=== PATIENT | female | born 1960 | race Caucasian/White ===

== ENCOUNTER 2017-06-21 07:41 | Emergency (ER) | payer MEDICAID, OTHER ==
[~2017-06-21] VITALS: Ht 154.9 cm; Wt 47.3 kg
[~2017-06-21 07:41] MED LIST: ATRIN IH; CYCL-1 PO; DIAZ5TAB PO; HYDR-569 PO; PRED20TA PO; PROC-8 PO
[2017-06-21 07:55] VITALS: BP 113/76
[2017-06-21 10:17] LABS: BASOPHILS # (AUTO) 0.2 X10'3 (0-0.2); BASOPHILS % (AUTO) 2.8 % (0-1); EOSINOPHILS # (AUTO) 0.2 X10'3 (0-0.9); EOSINOPHILS % (AUTO) 2.4 % (0-6); HEMOGLOBIN 14.4 g/dl (12.0-16.0); LYMPHOCYTES # (AUTO) 1.7 X10'3 (1.1-4.8); LYMPHOCYTES % (AUTO) 24.5 % (21-51); MEAN CORPUSCULAR HEMOGLOBIN 32.5 PG (27.0-31.0); MEAN CORPUSCULAR HGB CONC 34.3 % (33.0-36.5); MEAN CORPUSCULAR VOLUME 94.5 FL (78-98); MEAN PLATELET VOLUME 8.1 FL (7.4-10.4); MONOCYTES # (AUTO) 0.7 X10'3 (0-0.9); MONOCYTES % (AUTO) 10.1 % (2-12); NEUTROPHILS % (AUTO) 60.2 % (42-75); PLATELET COUNT 347 X10'3 (140-440); RED BLOOD COUNT 4.44 X10'6 (4.20-5.60); RED CELL DISTRIBUTION WIDTH 12.1 % (11.5-14.5); WHITE BLOOD COUNT 6.8 X10'3 (4.5-11.0)
[2017-06-21 10:27] LABS: PARTIAL THROMBOPLASTIN TIME 27 SECONDS (22-32)
[2017-06-21 10:41] LABS: ALANINE AMINOTRANSFERASE 35 U/L (12-78); ALBUMIN 3.9 G/DL (3.4-5.0); ALBUMIN/GLOBULIN RATIO 0.9 (1.1-1.5); ALKALINE PHOSPHATASE 78 IU/L (46-116); ANION GAP 7 (8-16); ASPARTATE AMINO TRANSFERASE 19 U/L (10-37); BILIRUBIN,TOTAL 0.4 MG/DL (0.1-1.0); BLOOD UREA NITROGEN 11 MG/DL (7-18); BUN/CREATININE RATIO 18.3 (6.6-38.0); CALCIUM 9.2 MG/DL (8.5-10.1); CHLORIDE 104 MMOL/L (99-107); GLUCOSE 93 MG/DL (70-104); LIPASE 176 U/L (73-393); MAGNESIUM 2.1 MG/DL (1.5-2.4); POTASSIUM 4.1 MMOL/L (3.5-5.1); SODIUM 143 MMOL/L (135-145); TOTAL CARBON DIOXIDE 32.3 MMOL/L (24-32); TOTAL PROTEIN 8.1 G/DL (6.4-8.2); eGFR > 90 ML/MIN
[2017-06-21 11:02] LABS: CLARITY,URINE Clear (Clear); COLOR,URINE Yellow (Yellow); GLUCOSE, URINE Negative (Neg); KETONES,URINE Trace mg/dl (Neg); LEUKOCYTE ESTERASE ,URINE Small (Neg); NITRITES, URINE Negative (Neg); OCCULT BLOOD,URINE Negative (Neg); PH,URINE 6.5 (4.8-8.0); PROTEIN,URINE Negative (Neg)
[2017-06-21 11:04] LABS: UA COLLECTION TYPE CLN CATCH MIDSTREAM
[2017-06-21 11:12] LABS: BACTERIA,URINE FEW /HPF (Neg); MUCUS STRANDS MODERATE /LPF (Neg); RBC,URINE 0-2 /HPF (0-2); SQUAMOUS EPITHELIAL CELL,UR MANY /LPF (FEW); WBC,URINE 0-4 /HPF (0-4)
== END 2017-06-21 12:12 | disposition home or self-care (01) ==
LOC: ER 07:41
DX: G89.29 Other chronic pain (principal); M54.9 Dorsalgia, unspecified; R23.1 Pallor; F17.200 Nicotine dependence, unspecified, uncomplicated; Z98.890 Other specified postprocedural states
CPT/HCPCS: 36415; 71046; 80053; 81001; 83690; 83735; 85025; 85610; 85651; 85730; 86140; 99285

== ENCOUNTER 2017-11-12 06:29 | Emergency (ER) | payer MEDICAID ==
[~2017-11-12] VITALS: Ht 160 cm; Wt 44.7 kg
[2017-11-12 06:35] VITALS: BP 118/71
[2017-11-12] MEDS ORDERED: HYDR-565 PO (07:03)
== END 2017-11-12 07:30 | disposition home or self-care (01) ==
LOC: ER 06:30
DX: S93.401A Sprain of unspecified ligament of right ankle, initial encounter (principal); G89.29 Other chronic pain; M19.90 Unspecified osteoarthritis, unspecified site; Z79.899 Other long term (current) drug therapy; Z98.890 Other specified postprocedural states; W18.31XA Fall on same level due to stepping on an object, initial encounter; Y93.89 Activity, other specified; Y92.89 Other specified places as the place of occurrence of the external cause; Y99.8 Other external cause status
CPT/HCPCS: 29515; 73600; 99284

== ENCOUNTER 2018-03-02 07:38 | Emergency (ER) | payer MEDICAID ==
[~2018-03-02] VITALS: Ht 152.4 cm; Wt 47.7 kg
[2018-03-02 07:41] VITALS: BP 109/68
[2018-03-02] MEDS ORDERED: ketorolac trometh inj. 60 MG/2 ML VIAL IM ONE (08:15)
[2018-03-02] MEDS ORDERED: HYDR-565 PO (08:25)
== END 2018-03-02 08:35 | disposition home or self-care (01) ==
LOC: ER 07:38
DX: M54.5 Low back pain (principal); M19.90 Unspecified osteoarthritis, unspecified site; G89.29 Other chronic pain; Z98.890 Other specified postprocedural states; Z79.899 Other long term (current) drug therapy
CPT/HCPCS: 96372; 99283; J1885

== ENCOUNTER 2019-06-30 08:32 | Emergency (ER) | payer SELFPAY ==
[~2019-06-30] VITALS: Ht 152.4 cm; Wt 40.9 kg
[~2019-06-30 08:32] MED LIST changes: +HYDR-4383 PO; -HYDR-569 PO
[2019-06-30 08:42] VITALS: BP 124/61
[2019-07-01] MEDS ORDERED: ORPH100T2 PO (10:43)
== END 2019-06-30 10:45 | disposition left against medical advice (07) ==
LOC: ER 08:33
DX: M25.552 Pain in left hip (principal); M54.9 Dorsalgia, unspecified; Z53.21 Procedure and treatment not carried out due to patient leaving prior to being seen by health care provider

== ENCOUNTER 2019-06-30 13:43 | Emergency (ER) | payer SELFPAY ==
[2019-07-01] MEDS ORDERED: ORPH100T2 PO (10:43)
== END 2019-06-30 16:22 | disposition left against medical advice (07) ==
LOC: ER 13:44
DX: M54.9 Dorsalgia, unspecified (principal); Z53.21 Procedure and treatment not carried out due to patient leaving prior to being seen by health care provider

== ENCOUNTER 2019-07-01 09:34 | Emergency (ER) | payer MEDICAID, OTHER ==
[~2019-07-01] VITALS: Ht 152.4 cm; Wt 38.4 kg
[2019-07-01 10:00] VITALS: BP 115/72
[2019-07-01] MEDS ORDERED: ORPH100T2 PO (10:43)
[2019-07-01] MEDS ORDERED: HYDROcodone/acetaminophen 5mg/325mg tablet PO ONE (10:45)
[2019-07-01] MEDS ORDERED: orphenadrine citrate 60mg/2ml inj. IM ONE (10:45)
[2019-07-01] MEDS ORDERED: ketorolac trometh inj. 60 MG/2 ML VIAL IM ONE (10:45)
== END 2019-07-01 11:22 | disposition home or self-care (01) ==
LOC: ER 09:34
DX: M54.42 Lumbago with sciatica, left side (principal); G89.29 Other chronic pain; M62.830 Muscle spasm of back; E78.00 Pure hypercholesterolemia, unspecified; I10 Essential (primary) hypertension; M19.90 Unspecified osteoarthritis, unspecified site; F10.99 Alcohol use, unspecified with unspecified alcohol-induced disorder; Z98.890 Other specified postprocedural states; Z79.899 Other long term (current) drug therapy; Y90.9 Presence of alcohol in blood, level not specified
CPT/HCPCS: 96372; 99283; J1885; J2360

== ENCOUNTER 2021-10-07 09:21 | Emergency (ER) | payer MEDICAID, OTHER ==
[~2021-10-07] VITALS: Ht 162.6 cm; Wt 59.1 kg
[~2021-10-07 09:21] MED LIST changes: +ORPH100T2 PO
[2021-10-07 09:25] VITALS: BP 170/98
[2021-10-07 10:14] LABS: BASOPHILS # (AUTO) 0.1 X10'3 (0-0.2); BASOPHILS % (AUTO) 1.1 % (0-1); EOSINOPHILS # (AUTO) 0.3 X10'3 (0-0.9); EOSINOPHILS % (AUTO) 4.4 % (0-6); HEMATOCRIT 41.8 % (35.0-45.0); LYMPHOCYTES # (AUTO) 1.4 X10'3 (1.1-4.8); MEAN CORPUSCULAR HEMOGLOBIN 33.4 PG (27.0-31.0); MEAN CORPUSCULAR HGB CONC 33.4 g/dL (33.0-36.5); MEAN PLATELET VOLUME 9.1 FL (7.4-10.4); MONOCYTES # (AUTO) 0.5 X10'3 (0-0.9); MONOCYTES % (AUTO) 7.6 % (2-12); NEUTROPHILS # (AUTO) 4.5 X10'3 (1.8-7.7); NEUTROPHILS % (AUTO) 66.9 % (42-75); PLATELET COUNT 254 X10'3 (140-440); RED BLOOD COUNT 4.18 X10'6 (4.20-5.60); RED CELL DISTRIBUTION WIDTH 12.6 % (11.5-14.5); WHITE BLOOD COUNT 6.8 X10'3 (4.5-11.0)
[2021-10-07 10:28] LABS: ALANINE AMINOTRANSFERASE 43 U/L (12-78); ALBUMIN 3.8 G/DL (3.4-5.0); ALKALINE PHOSPHATASE 70 IU/L (46-116); ANION GAP 12 (8-16); ASPARTATE AMINO TRANSFERASE 38 U/L (10-37); BILIRUBIN,TOTAL 0.3 MG/DL (0.1-1.0); BLOOD UREA NITROGEN 14 MG/DL (7-18); BUN/CREATININE RATIO 20.9 (6.6-38.0); CALCIUM 8.9 MG/DL (8.5-10.1); CHLORIDE 103 MMOL/L (99-107); CREATININE 0.67 MG/DL (0.40-0.90); GLUCOSE 104 MG/DL (70-104); LIPASE 149 U/L (73-393); POTASSIUM 3.9 MMOL/L (3.5-5.1); SODIUM 138 MMOL/L (135-145); TOTAL PROTEIN 7.6 G/DL (6.4-8.2); eGFR 90 ML/MIN
[2021-10-07 12:51] LABS: URINE HCG NEGATIVE (NEG)
[2021-10-07 12:55] LABS: CLARITY,URINE CLEAR (Clear); GLUCOSE, URINE NEGATIVE (Neg); KETONES,URINE NEGATIVE (Neg); LEUKOCYTE ESTERASE ,URINE SMALL (Neg); NITRITES, URINE NEGATIVE (Neg); OCCULT BLOOD,URINE NEGATIVE (Neg); PH,URINE 6.5 (4.8-8.0); PROTEIN,URINE NEGATIVE (Neg); UROBILINOGEN,URINE 0.2 E.U/dL (0.2-1.0)
[2021-10-07 12:58] LABS: COLOR,URINE STRAW (Yellow); UA COLLECTION TYPE CLN CATCH MIDSTREAM
[2021-10-07 13:01] LABS: BACTERIA,URINE FEW /HPF (Neg); MUCUS STRANDS FEW /LPF (Neg); RBC,URINE NONE SEEN /HPF (0-2); SQUAMOUS EPITHELIAL CELL,UR FEW /LPF (FEW); TRANSITIONAL EPI CELLS,URINE FEW /HPF; WBC CLUMPS,URINE FEW /HPF (NEGATIVE)
[2021-10-07] MEDS ORDERED: HYDR-3965 PO (13:01)
== END 2021-10-07 13:15 | disposition home or self-care (01) ==
LOC: ER 09:23
DX: R10.11 Right upper quadrant pain (principal); E78.00 Pure hypercholesterolemia, unspecified; I10 Essential (primary) hypertension; M19.90 Unspecified osteoarthritis, unspecified site; G89.29 Other chronic pain; Z72.89 Other problems related to lifestyle; Z98.890 Other specified postprocedural states; Z79.899 Other long term (current) drug therapy
CPT/HCPCS: 36415; 80053; 81001; 81025; 83690; 85025; 87088; 99283

== ENCOUNTER 2022-07-19 14:19 | Emergency (ER) | payer MEDICAID ==
[~2022-07-19] VITALS: Ht 152.4 cm; Wt 59.1 kg
[2022-07-19 14:26] VITALS: BP 172/93
[2022-07-19 14:56] LABS: CLARITY,URINE CLOUDY (Clear); COLOR,URINE YELLOW (Yellow); GLUCOSE, URINE NEGATIVE (Neg); KETONES,URINE 15 mg/dl (Neg); LEUKOCYTE ESTERASE ,URINE SMALL (Neg); NITRITES, URINE NEGATIVE (Neg); OCCULT BLOOD,URINE NEGATIVE (Neg); PH,URINE 6.5 (4.8-8.0); PROTEIN,URINE NEGATIVE (Neg); UA COLLECTION TYPE CLN CATCH MIDSTREAM; UROBILINOGEN,URINE 0.2 E.U/dL (0.2-1.0)
[2022-07-19 15:04] LABS: SQUAMOUS EPITHELIAL CELL,UR MODERATE /LPF (FEW)
[2022-07-19 15:05] LABS: MUCUS STRANDS FEW /LPF (Neg); TRANSITIONAL EPI CELLS,URINE FEW /HPF
[2022-07-19 15:06] LABS: BACTERIA,URINE FEW /HPF (Neg); RBC,URINE 0-2 /HPF (0-2); WBC,URINE 0-4 /HPF (0-4)
--- NOTE | 2022-07-19 15:45 | NUR ---
Patient seen by provider in [facility]. Patient waiting in lobby waiting for exam room in ED.
[2022-07-19 16:13] LABS: BASOPHILS % (AUTO) 0.7 % (0-1); EOSINOPHILS # (AUTO) 0.1 X10'3 (0-0.9); EOSINOPHILS % (AUTO) 2.1 % (0-6); HEMATOCRIT 44.4 % (35.0-45.0); LYMPHOCYTES # (AUTO) 1.6 X10'3 (1.1-4.8); LYMPHOCYTES % (AUTO) 25.4 % (21-51); MEAN CORPUSCULAR HEMOGLOBIN 32.8 PG (27.0-31.0); MEAN CORPUSCULAR HGB CONC 33.9 g/dL (33.0-36.5); MEAN CORPUSCULAR VOLUME 96.9 FL (78-98); MEAN PLATELET VOLUME 8.6 FL (7.4-10.4); MONOCYTES # (AUTO) 0.6 X10'3 (0-0.9); MONOCYTES % (AUTO) 9.2 % (2-12); NEUTROPHILS # (AUTO) 3.9 X10'3 (1.8-7.7); NEUTROPHILS % (AUTO) 62.6 % (42-75); PLATELET COUNT 252 X10'3 (140-440); RED BLOOD COUNT 4.58 X10'6 (4.20-5.60); RED CELL DISTRIBUTION WIDTH 12.7 % (11.5-14.5); WHITE BLOOD COUNT 6.3 X10'3 (4.5-11.0)
[2022-07-19 16:23] LABS: ALANINE AMINOTRANSFERASE 51 U/L (12-78); ALBUMIN 4.4 G/DL (3.4-5.0); ALBUMIN/GLOBULIN RATIO 1.2 (1.1-1.5); ALKALINE PHOSPHATASE 60 IU/L (46-116); ANION GAP 9 (8-16); ASPARTATE AMINO TRANSFERASE 37 U/L (10-37); BILIRUBIN,TOTAL 0.4 MG/DL (0.1-1.0); BLOOD UREA NITROGEN 10 MG/DL (7-18); BUN/CREATININE RATIO 15.2 (6.6-38.0); CALCIUM 9.2 MG/DL (8.5-10.1); CHLORIDE 104 MMOL/L (99-107); CREATININE 0.66 MG/DL (0.40-0.90); GLUCOSE 96 MG/DL (70-104); LIPASE 137 U/L (73-393); POTASSIUM 3.8 MMOL/L (3.5-5.1); SODIUM 140 MMOL/L (135-145); TOTAL CARBON DIOXIDE 26.9 MMOL/L (24-32); TOTAL PROTEIN 8.2 G/DL (6.4-8.2); eGFR > 90 ML/MIN
--- NOTE | 2022-07-19 18:57 | NUR ---
Patient evaluated, treated and discharged by provider.
== END 2022-07-19 19:03 | disposition home or self-care (01) ==
LOC: ER 14:20
DX: R10.11 Right upper quadrant pain (principal); K80.50 Calculus of bile duct without cholangitis or cholecystitis without obstruction; E78.00 Pure hypercholesterolemia, unspecified; I10 Essential (primary) hypertension; G89.29 Other chronic pain; M54.9 Dorsalgia, unspecified; Z79.899 Other long term (current) drug therapy; Z79.1 Long term (current) use of non-steroidal anti-inflammatories (NSAID)
CPT/HCPCS: 36415; 76700; 80053; 81001; 83690; 85025; 87088; 99284

== ENCOUNTER 2022-07-27 11:26 | Emergency (ER) | payer MEDICAID ==
[~2022-07-27] VITALS: Ht 152.4 cm; Wt 54.0 kg
[2022-07-27 11:50] VITALS: BP 155/101
[2022-07-27] MEDS ORDERED: HYDROcodone/acetaminophen 10/325mg tab PO ONE (12:55)
[2022-07-27] MEDS ORDERED: HYDR-3972 PO (13:24)
--- NOTE | 2022-07-27 13:31 | NUR ---
ADMINISTRATION ASSISTANT BILL AT BEDSIDE.
--- NOTE | 2022-07-27 13:47 | NUR ---
SPLINT APPROVED BY DR. COOK.
== END 2022-07-27 13:47 | disposition home or self-care (01) ==
LOC: ER 11:27
DX: S52.592A Other fractures of lower end of left radius, initial encounter for closed fracture (principal); I10 Essential (primary) hypertension; G89.29 Other chronic pain; M54.9 Dorsalgia, unspecified; E78.00 Pure hypercholesterolemia, unspecified; W18.39XA Other fall on same level, initial encounter; Y93.89 Activity, other specified; Y92.89 Other specified places as the place of occurrence of the external cause; Y99.8 Other external cause status
CPT/HCPCS: 29125; 73110; 99284

== ENCOUNTER 2022-08-27 09:00 | Day surgery (SDC) | payer MEDICAID ==
[~2022-08-27] VITALS: Ht 152.4 cm; Wt 59.0 kg
[~2022-08-27 09:00] MED LIST changes: +cefazolin 2gm/D5W 100mL 100 ML IV ONE; +famotidine 20mg tablet PO ONE; +ringers solution, lacted 1,000 ML IV SCH
[2022-08-28] MEDS ORDERED: ringers solution, lacted 1,000 ML IV SCH (05:00)
== END 2022-08-27 23:59 | disposition home or self-care (01) ==
LOC: PRE-OP 09:00
PROVIDERS: ATTEND Orthopaedic Surgery Hand Surgery
DX: Z01.818 Encounter for other preprocedural examination (principal); S52.502A Unspecified fracture of the lower end of left radius, initial encounter for closed fracture; X58.XXXA Exposure to other specified factors, initial encounter; Y93.89 Activity, other specified; Y92.89 Other specified places as the place of occurrence of the external cause; Y99.8 Other external cause status
CPT/HCPCS: J0690; J7120